=== PATIENT | male | born 1960 | race African-American/Black ===

== ENCOUNTER 2019-01-06 14:16 | Emergency (ER) | payer OTHER ==
[~2019-01-06] VITALS: Ht 185.4 cm; Wt 82.0 kg
[2019-01-06] MEDS ORDERED: MORPHINE SULFATE 4 MG/ML CPJ (NOT FOR IM USE) IV STA (15:06)
[2019-01-06] MEDS ORDERED: SODIUM CHLORIDE 0.9% 1,000 ML IV ONE (15:06)
[2019-01-06] MEDS ORDERED: ONDANSETRON HCL 4MG/2ML INJ IV STA (15:06)
[2019-01-06 16:25] LABS: BASOPHILS % 0.8 % (0.0-2.0); EOSINOPHILS % 3.6 % (0.0-5.0); HEMATOCRIT. 41.9 % (42.0-52.0); HEMOGLOBIN. 14.3 g/dL (14.0-18.0); MEAN CORPUSCULAR HEMOGLOBIN 34.7 pg (28.0-32.0); MEAN CORPUSCULAR VOLUME 101.9 fL (80.0-94.0); MEAN PLATELET VOLUME 7.9 fl (7.4-10.4); NEUTROPHILS % 69.6 % (40.0-76.0); PLATELET 264 x1000/uL (130-400); RED BLOOD CELL COUNT 4.11 mill/uL (4.7-6.1)
[2019-01-06 16:30] LABS: CHLORIDE 104 mEq/L (98-107)
[2019-01-06 16:31] LABS: PROTHROMBIN TIME 10.5 sec (9.6-11.0)
[2019-01-06 18:30] VITALS: BP 128/86
== END 2019-01-06 19:30 | disposition home or self-care (01) ==
LOC: ER 14:16
DX: K29.70 Gastritis, unspecified, without bleeding (principal)
CPT/HCPCS: 36415; 74176; 80053; 83690; 85025; 85610; 93005; 96374; 96375; 99284; J2270; J2405; J7030